=== PATIENT | male | born 1955 | race Caucasian/White ===

== ENCOUNTER → 2018-04-30 | Outpatient (CLI) | payer BC ==
--- NOTE | 2018-04-30 12:19 | Diagnostic Imaging Report ---
EXAMINATION: Renal ultrasound. CLINICAL HISTORY :Feeling of incomplete bladder emptying COMPARISON: <None available.> TECHNIQUE: Grayscale and color Doppler evaluation of the kidneys and bladder was performed in transverse and longitudinal planes. DISCUSSION: RIGHT KIDNEY: The right kidney measures 11.1 cm in length and shows normal renal cortical echogenicity. No hydronephrosis, shadowing calculi or solid mass lesions. LEFT KIDNEY: The left kidney measures 13.1 cm in length and shows normal renal cortical echogenicity. No hydronephrosis, shadowing calculi or solid mass lesions. BLADDER: Right and left ureteral jets are identified. Significant post void residual of approximately 230 cc. Prostate measures 3.8 x 3.8 x 4.3 cm (estimated volume 32.6 cc) IMPRESSION: Significant post void residual bladder volume as above. Unremarkable sonographic appearance of the kidneys. Signed by: Dr. Artie Blevins M.D. on 04/30/2018 12:15 PM
== END ==
LOC: US 11:17
PROVIDERS: ATTEND Urology
DX: R39.14 Feeling of incomplete bladder emptying (principal)
CPT/HCPCS: 76770